=== PATIENT | male | born 1990 | race African-American/Black ===

== ENCOUNTER 2018-09-06 21:47 | Emergency (ER) | payer SELFPAY ==
[~2018-09-06] VITALS: Ht 170.2 cm; Wt 68.0 kg
[2018-09-06 22:05] VITALS: BP 134/73
[2018-09-06] MEDS ORDERED: HYDROcodone/APAP 5/325MG 1 TAB TABLET PO ONE (23:00)
[2018-09-06] MEDS ORDERED: KETOROLAC 60 MG/2 ML VIAL. IM ONE (23:00)
--- NOTE | 2018-09-06 23:09 | RAD ---
FOOT LEFT 3V History: Tenderness after playing basketball Comparison: None. Findings: 3 views of the left foot are submitted. No acute fracture or dislocation is identified. 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 There is lucency of a sesamoid the plantar, distal aspect of the first metatarsal. Impression: 1. 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 2. There is some lucency of sesamoid at the plantar distal aspect of first metatarsal, may be more chronic, there is focal pain at this location. Electronically signed by: Mark Curiel MD (09/06/2018 11:06 PM) [facility]
--- NOTE | 2018-09-06 23:18 | PHYS DOC ---
Past Medical History Past Medical History: No Pertinent History (DARYL ANTONIO APRN) Past Surgical History: No Surgical History (DARYL ANTONIO APRN) Alcohol Use: Occasionally Drug Use: None (DARYL ANTONIO APRN) Adult General Chief Complaint Chief Complaint: ANKLE PROBLEM [facility] HPI Patient is a 28 year old male who presents with left lateral foot pain that occurred after his playing basketball around 4:30 PM. The patient landed on his foot wrong. States his pain is 10 out of 10 describes as throbbing and sharp. Has not taken any pain medicine before arrival. (DARYL ANTONIO APRN) Review of Systems Review of Systems Constitutional: Denies fever or chills [] Eyes: Denies change in visual acuity, redness, or eye pain [] HENT: Denies nasal congestion or sore throat [] Respiratory: Denies cough or shortness of breath [] Cardiovascular: No additional information not addressed in HPI [] GI: Denies abdominal pain, nausea, vomiting, bloody stools or diarrhea [] : Denies dysuria or hematuria [] Musculoskeletal: Denies back pain or joint pain with exception of L foot. Integument: Denies rash or skin lesions [] Neurologic: Denies headache, focal weakness or sensory changes [] Endocrine: Denies polyuria or polydipsia [] Complete systems were reviewed and found to be within normal limits, except as documented in this note. (DARYL ANTONIO APRN) Current Medications Current Medications Current Medications Medications (Trade) Dose Ordered Sig/Clara Start Time Stop Time Status Last Admin Dose Admin Acetaminophen/ Hydrocodone Bitart (Lortab 5/325) 1 tab 1X ONCE 09/06/18 23:00 09/06/18 23:01 DC 09/06/18 23:05 1 TAB Ketorolac Tromethamine (Toradol Im) 30 mg 1X ONCE 09/06/18 23:00 09/06/18 23:01 DC 09/06/18 23:06 30 MG (DARYL LAYTON DO) Allergies Allergies Allergies Coded Allergies Type Severity Reaction Last Updated Verified No Known Drug Allergies 09/06/18 No (DARYL LAYTON DO) Physical Exam Physical Exam Constitutional: Well developed, well nourished, no acute distress, non-toxic appearance. [] HENT: Normocephalic, atraumatic, bilateral external ears normal, oropharynx moist, no oral exudates, nose normal. [] Eyes: PERRLA, EOMI, conjunctiva normal, no discharge. [] Neck: Normal range of motion, no tenderness, supple, no stridor. [] Cardiovascular:Heart rate regular rhythm, no murmur [] Lungs & Thorax: Bilateral breath sounds clear to auscultation [] Abdomen: Bowel sounds normal, soft, no tenderness, no masses, no pulsatile masses. [] Skin: Warm, dry, no erythema, no rash. [] Back: No tenderness, no CVA tenderness. [] Extremities: Tenderness to lateral aspect of L foot, no cyanosis, no clubbing, ROM intact, edema to L foot.. [] Neurologic: Alert and oriented X 3, normal motor function, normal sensory function, no focal deficits noted. [] Psychologic: Affect normal, judgement normal, mood normal. [] (DARYL ANTONIO APRN) Current Patient Data Vital Signs Vital Signs Date Time Temp Pulse Resp B/P (MAP) Pulse Ox O2 Delivery O2 Flow Rate FiO2 09/06/18 23:05 Room Air 09/06/18 22:05 97.8 85 16 134/73 (93) 100 97.8 (DARYL LAYTON DO) EKG EKG [] (DARYL ANTONIO APRN) Radiology/Procedures Radiology/Procedures []PATIENT: JASEN MISTRY: [id number]#: [id number] : 1990 LOCATION: ER AGE: 28 SEX: M EXAM STATUS: REG ER ORD. PHYSICIAN: DARYL ANTONIO APRN REASON: tenderness, after playing basketball. PROCEDURE: FOOT LEFT 3V FOOT LEFT 3V History: Tenderness after playing basketball Comparison: None. Findings: 3 views of the left foot are submitted. No acute fracture or dislocation is identified. 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 There is lucency of a sesamoid the plantar, distal aspect of the first metatarsal. Impression: 1. 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 2. There is some lucency of sesamoid at the plantar distal aspect of first metatarsal, may be more chronic, there is focal pain at this location. Electronically signed by: Mark Curiel MD (09/06/2018 11:06 PM) [facility] (DARYL ANTONIO APRN) Course & Med Decision Making Course & Med Decision Making Pertinent Labs and Imaging studies reviewed. (See chart for details) Will give pain medication and obtain x-rays. X-rays are negative. Will put in boot and have follow up with primary care. (DARYL ANTONIO APRN) Dragon Disclaimer Dragon Disclaimer This electronic medical record was generated, in whole or in part, using a voice recognition dictation system. (DARYL ANTONIO APRN) Departure Departure Impression: Primary Impression: Foot pain Disposition: HOME, SELF-CARE Condition: STABLE Referrals: NO PCP (PCP) Patient Instructions: Foot Contusion Additional Instructions: Thank you for visiting [facility]. We appreciate you trusting us with your care. If any additional problems come up don't hesitate to return to visit us. Please follow up with your primary care provider so they can plan additional care if needed and know about the problem that you had. If symptoms worsen come back to the Emergency Department. Any concerning symptoms that start such as chest pain, shortness of Air, weakness or numbness on one side of the body, running high fevers or any other concerning symptoms return to the ER. Pain continues please follow up with primary care doctor to have the foot re-x-rayed. Wear boot and use crutches as needed. Attending Signature Attending Signature I have reviewed the PA/SENIOR JAVA UI DEVELOPER's note and plan of care. I was available for consultation as needed during the patient's visit in the emergency department. I agree with the clinical impression, plan, and disposition. (DARYL LAYTON DO) Problem Qualifiers Primary Impression: Foot pain Laterality: left Qualified Codes: M79.672 - Pain in left foot DARYL ANTONIO APRN Sep 06, 2018 23:18 DARYL LAYTON DO Sep 07, 2018 03:53
== END 2018-09-07 00:14 | disposition home or self-care (01) ==
LOC: ER 21:47
DX: M79.672 Pain in left foot (principal); X50.1XXA Overexertion from prolonged static or awkward postures, initial encounter; Y93.67 Activity, basketball; Y92.89 Other specified places as the place of occurrence of the external cause; Y99.8 Other external cause status
CPT/HCPCS: 73630; 96372; 99284; J1885